=== PATIENT | female | born 1935 | race Caucasian/White ===

== ENCOUNTER → 2016-09-22 | Outpatient (CLI) | payer BC ==
[~2016-09-22] MED LIST: ASPIRIN 81MG TA81 MG PO; ASPIRIN325 M1 PO; CALCIUM CARBONA1 TAB PO; FISH OIL1000 MG PO; HORMONE PATCH; MINOCIN50 MG PO; NEXIUM40 MG PO; POTASSIUM CHLO10 ME3 PO; SYNTHROID 0.00.05 MG PO
[2016-09-22 10:44] LABS: BUN 12 mg/dL (7-18)
[2016-09-22 11:05] LABS: GFR (ESTIMATED) 81 ML/MIN (59-)
== END ==
LOC: LAB 09:03
PROVIDERS: Internal Medicine Adolescent Medicine
DX: I10 Essential (primary) hypertension (principal); R73.9 Hyperglycemia, unspecified; E03.9 Hypothyroidism, unspecified